=== PATIENT | female | born 1985 | race Caucasian/White ===

== ENCOUNTER → 2019-01-24 13:53 | Outpatient (CLI) | payer SELFPAY ==
[2016-11-26 01:21] VITALS: BMI 29.7
[2019-01-31 17:03] LABS: HPV Reflexed? NOT INDICATED
== END ==
PROVIDERS: Referring Provider Obstetrics & Gynecology; Visit Provider Obstetrics & Gynecology
DX: Z12.4 Encounter for screening for malignant neoplasm of cervix (principal)
CPT/HCPCS: 88175; G0145

== ENCOUNTER 2021-02-25 11:01 | Outpatient (CLI) | payer OTHER, SELFPAY ==
[2021-03-01 11:28] LABS: HPV Reflexed? NOT INDICATED
== END 2021-02-25 23:59 | disposition short-term general hospital (02) ==
LOC: LABSPEC 11:04
PROVIDERS: Referring Provider Obstetrics & Gynecology; Visit Provider Obstetrics & Gynecology
DX: Z12.4 Encounter for screening for malignant neoplasm of cervix (principal)
CPT/HCPCS: 88175; G0145

== ENCOUNTER → 2022-06-22 | Outpatient (CLI) | payer OTHER, SELFPAY ==
[2022-06-29 14:10] LABS: HPV APTIMA, High Risk Negative (Negative)
== END | disposition home or self-care (01) ==
PROVIDERS: PCP Family Medicine; Visit Provider Nurse Practitioner Women's Health
DX: Z12.4 Encounter for screening for malignant neoplasm of cervix (principal)
CPT/HCPCS: 87624; 88175; G0145

== ENCOUNTER → 2022-07-01 | Outpatient (CLI) | payer SELFPAY ==
--- NOTE | 2022-07-01 14:03 | US_ITS ---
STUDY: ULTRASOUND OF THE FEMALE PELVIS - COMPLETE REASON FOR EXAM: Female, 36 years old. menorrhagia LMP: 06/13/2022 TECHNIQUE: Transabdominal and Transvaginal TECHNICAL QUALITY: Adequate. COMPARISON: None. FINDINGS: The uterus is retroverted and is in a midline position. The uterus measures 8.4 x 5.4 x 5.2 cm. Normal uterine cervix. The endometrium measures 7 mm in thickness, and is hyperechoic. There is no demonstrated endometrial mass. Uterine myometrial fibroid measures up to 3.8 cm. I.U.D. - The patient does not have an I.U.D. The right ovary is visualized. The right ovary measures 5.6 x 5.1 x 4.1 cm. Complex cyst measures 4.6 x 4.3 x 2.6 cm. There is no visualized right adnexal mass or complex lesion. There is normal arterial and normal venous vascularity. The left ovary is visualized. The left ovary measures 3.8 x 3.0 x 2.4 cm. Anechoic cyst measures 3.4 x 2.4 x 1.6 cm. SRU Consensus Conference guidelines (Greenfield, et. al. Radiology 2019;293:359-371) suggest that this follicle or simple cyst is almost certainly benign and no follow-up of this cyst is necessary.There is no visualized left adnexal mass or complex lesion. There is normal arterial and normal venous vascularity. There is no fluid in the cul-de-sac. Visualized urinary bladder is unremarkable. US/Transvaginal Non- IMPRESSION: 1. 3.8 cm myometrial fibroid. 2. 4.6 cm complex right adnexal cyst, probable hemorrhagic cyst. ACR White Paper guidelines (Jean Pierre, et. al. Radiology 2010; 256(3):943-954) suggest short-interval pelvic ultrasound follow-up (6-12 weeks) to ensure resolution. Electronically Signed: Cem Langston (Brooks), at 17:33 EDT ,
--- NOTE | 2022-07-01 14:03 | US_ITS ---
STUDY: ULTRASOUND OF THE FEMALE PELVIS - COMPLETE REASON FOR EXAM: Female, 36 years old. menorrhagia LMP: 06/13/2022 TECHNIQUE: Transabdominal and Transvaginal TECHNICAL QUALITY: Adequate. COMPARISON: None. FINDINGS: The uterus is retroverted and is in a midline position. The uterus measures 8.4 x 5.4 x 5.2 cm. Normal uterine cervix. The endometrium measures 7 mm in thickness, and is hyperechoic. There is no demonstrated endometrial mass. Uterine myometrial fibroid measures up to 3.8 cm. I.U.D. - The patient does not have an I.U.D. The right ovary is visualized. The right ovary measures 5.6 x 5.1 x 4.1 cm. Complex cyst measures 4.6 x 4.3 x 2.6 cm. There is no visualized right adnexal mass or complex lesion. There is normal arterial and normal venous vascularity. The left ovary is visualized. The left ovary measures 3.8 x 3.0 x 2.4 cm. Anechoic cyst measures 3.4 x 2.4 x 1.6 cm. SRU Consensus Conference guidelines (Greenfield, et. al. Radiology 2019;293:359-371) suggest that this follicle or simple cyst is almost certainly benign and no follow-up of this cyst is necessary.There is no visualized left adnexal mass or complex lesion. There is normal arterial and normal venous vascularity. There is no fluid in the cul-de-sac. Visualized urinary bladder is unremarkable. US/Pelvic (Non ) IMPRESSION: 1. 3.8 cm myometrial fibroid. 2. 4.6 cm complex right adnexal cyst, probable hemorrhagic cyst. ACR White Paper guidelines (Greenfield, et. al. Radiology 2010; 256(3):943-954) suggest short-interval pelvic ultrasound follow-up (6-12 weeks) to ensure resolution. Electronically Signed: Cem Langston (Brooks), at 17:33 EDT ,
== END | disposition home or self-care (01) ==
PROVIDERS: PCP Family Medicine; Referring Provider Nurse Practitioner Women's Health; Visit Provider Nurse Practitioner Women's Health
DX: N92.0 Excessive and frequent menstruation with regular cycle (principal)
CPT/HCPCS: 76830; 76856

== ENCOUNTER → 2022-09-09 | Outpatient (CLI) | payer SELFPAY ==
[2022-09-09 14:25] LABS: Absolute Lymphocyte Count 2.43 X10^3/uL (0.83-4.51); Absolute Neutrophil Count 5.1 X10^3/uL (2.0-7.7); Basophil# 0.06 X10^3/uL; Basophil% 0.7 % (0-1); Eosinophils% 1.2 % (0-5); Hematocrit 39.6 % (37-47); Hemoglobin 12.8 g/dL (12.0-15.0); Lymphocyte # 2.43 X10^3/ul (0.83-4.51); Lymphocyte % 29.3 % (19-41); Mean Corp Hgb Conc 32.3 g/dL (32-36); Mean Corpuscular Hgb 28.1 pg (27.0-32.0); Monocyte# 0.62 X10^3/uL; Monocyte% 7.5 % (0-10); NRBC Flagged by Analyzer 0 % (0-5); Neutrophil # 5.06 X10^3/uL (2.7-7.7); Neutrophil % 60.9 % (47-70); Platelet Count 230 K/mm3 (150-450); RBC Distribution Width CV 13.4 % (11.6-14.6); RBC Distribution Width SD 42.5 fl (35.1-43.9); Red Blood Count 4.55 M/mm3 (4.2-5.4); White Blood Count 8.3 K/mm3 (4.4-11.0)
[2022-09-09 15:03] LABS: Thyroid Stim Hormone (TSH) 1.94 uIU/mL (0.358-3.74)
== END | disposition home or self-care (01) ==
LOC: LAB 14:00
PROVIDERS: PCP Family Medicine; Referring Provider Obstetrics & Gynecology; Visit Provider Obstetrics & Gynecology
DX: N92.0 Excessive and frequent menstruation with regular cycle (principal)
CPT/HCPCS: 36415; 84443; 85025

== ENCOUNTER → 2023-01-13 | Outpatient (CLI) | payer OTHER, SELFPAY ==
--- NOTE | 2023-01-13 13:15 | EMB_PTH ---
PATIENT: LAMONT MACDONALD LOC: JACKELIN #:[id number] AGE/SX: 37/F ROOM: RE01/13/[address]: Dr. Melissa Geller MD : 1985 BED: DIS: 01/13/2023 SPEC #: [id number] RECD: 01/13/23 16:40 STATUS: JENISE RELala #: [id number] LACHO: 01/13/23 13:[address]: Melissa Geller DEPT: SURGICAL PATHOLOGY RECD BY: Selene Foote ENTERED: 01/16/23 08:19 SP TYPE: ENDOM BX/C OTHR DR: Dr. Tommy Cuenca MD Tissues: Endometrium, NOS Procedures: Surgery Specimen Level IV HEADER OPERATION: Endometrial biopsy PRE-OP DIAGNOSIS: Abnormal uterine bleeding TISSUE SUBMITTED: Endometrial tissue MICROSCOPIC DIAGNOSIS Endometrium, biopsy: Secretory endometrium. AM:randee 01/17/2023 MICROSCOPIC DESCRIPTION Slides are reviewed. GROSS DESCRIPTION Received is one container labeled with the patient's name and not further designated. The specimen consists of multiple irregular fragments of hemorrhagic mucoid tissue that in aggregate measure 2.5 x 1.5 x 0.2 cm. The specimen is totally submitted in one cassette. / SJ:randee 01/16/2023 TC:5 CPT: 54829
== END | disposition home or self-care (01) ==
PROVIDERS: PCP Family Medicine; Visit Provider Obstetrics & Gynecology
DX: N93.9 Abnormal uterine and vaginal bleeding, unspecified (principal)
CPT/HCPCS: 88305

== ENCOUNTER 2023-01-24 18:27 | Observation (INO) | payer OTHER, SELFPAY ==
[2023-01-21 11:27] LABS: Hematocrit 40.9 % (37-47); Hemoglobin 12.8 g/dL (12.0-15.0); Mean Corp Hgb Conc 31.3 g/dL (32-36); Mean Corpuscular Hgb 28.1 pg (27.0-32.0); Mean Corpuscular Volume 89.7 fL (81-99); Mean Platelet Vol. 10.6 fl (6.2-12.0); Platelet Count 208 K/mm3 (150-450); RBC Distribution Width CV 13.4 % (11.6-14.6); RBC Distribution Width SD 44.2 fl (35.1-43.9); Red Blood Count 4.56 M/mm3 (4.2-5.4)
[2023-01-24] VITALS (16 sets, daily range): BP systolic 96–128; BP diastolic 57–88; PULSE 58–98; RESP 15–17; TEMP 36.4–37.1; O2SAT 92–100; BMI 30.5
--- OUTSIDE RECORDS SUMMARY | 2023-01-24 09:54 | XMS RPT_ITS | CCD ---
Author Name Unknown Address [address] [place] [address] Organization [facility] Care Team Providers Care Community Development Manager Name Role Phone SANDRA DUNAWAY Referring Unavailable SANDRA DUNAWAY Consulting Unavailable CRIS CROCKER Attending Unavailable CRIS CROCKER Primary Care Unavailable CRIS CROCKER Admitting Unavailable PROVIDER, UNKNOWN Consulting Unavailable PROVIDER, UNKNOWN Consulting Unavailable PROVIDER, UNKNOWN Consulting Unavailable KIRAN FREY Attending Unavailable KIRAN FREY Primary Care Unavailable KIRAN FREY Admitting Unavailable Results Test Name Value Interpretation Reference Range Facil ity Encounters Encounter Date Encounter Type Care Provider Facility Start: 06-06-2022 End: 06-06-2022 Emergency department patient visit SANDRA DUNAWAY [facility] Start: 07-29-2021 End: 07-29-2021 Emergency department patient visit KIRAN Ross FREY [facility] Procedures Date Procedure Procedure Detail Performing Clinician Start: 06-06-2022 Urinalysis SANDRA Cooney Summary Purpose Family History No Family History Records Found Advance Directives No Advanced Directives Records Found Additional Source Comments INFORMATION SOURCE (unrecogn ized section and content) FOR RECORDS PERTAINING TO PATIENTS WHO ARE OR HAVE BEEN ENROLLED IN A CHEMICAL DEPENDENCY/SUBSTANCEABUSE PROGRAM, SOME INFORMATION MAY BE OMITTED. This clinical summary was aggregated from multiple sources. Caution should be exercised in using it in the provision of clinical care. This summary normalizes information from multiple sources, and as a consequence, information in this document may materially change the coding, format and clinical context of patient data. In addition, data may be omitted in some cases. CLINICAL DECISIONS SHOULD BE BASED ON THE PRIMARY CLINICAL RECORDS. [employer] provides no warranty or guarantee of the accuracy or completeness of information in this document.
[2023-01-24 10:09] LABS: Internal QC Validated? YES +Cl - CLEAR BKGD; Pregnancy, Urine Negative Negative; Record Kit Lot#,Urine Preg 667200
[2023-01-24] MEDS: Celecoxib 200 MG Capsule 400 MG PO (10:11)
[2023-01-24] MEDS: Gabapentin 600 MG Tablet PO (10:11)
[2023-01-24] MEDS: Acetaminophen 500 MG Tablet 1000 MG PO ×2 (10:11→19:41)
[2023-01-24] MEDS: Scopolamine 1mg/72hr Patch 1 PATCH TD (10:11)
[2023-01-24] MEDS: Enoxaparin 40 MG/0.4 ML Syringe SC (10:12)
[2023-01-24] MEDS: Lactated Ringers 1,000 ML 40 ML IV (10:12)
[2023-01-24] MEDS: dexAMETHasone 4 MG/ML Vial 8 MG IV (10:12)
[2023-01-24] MEDS: Phenazopyridine 95 MG Tablet 190 MG PO (10:15)
[2023-01-24 10:34] LABS: Magnesium 2.3 mg/dL (1.6-2.6)
[2023-01-24] MEDS: Magnesium 1 GM over 15 mins IV (11:02)
[2023-01-24 11:18] LABS: Bedside Glucose 91 mg/dL (74-106)
--- NOTE | 2023-01-24 11:28 | PCM.HP.BLA ---
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: No Is patient in pain?: No Allergies No Known Allergies Allergy (Verified 01/13/23 13:10) Medications tranexamic acid 650 mg tablet 1,300 mg (2 x 650 mg) PO TID 5 days #30 tabs 09/09/22 [Rx Confirmed 01/13/23] Post menopausal: No Patient : No : No PFSH PFSH Medical History delivery delivered Surgical History S/P Family History Aunt Cancer LungMother HypertensionGrandfather HypertensionGrandmother CVA (cerebral vascular accident) Myocardial infarctionOther Diabetes Social History household members: spouse housing: house number of children: 1 current occupational status: employed current occupation: [employer] Smoking Status: Never smoker alcohol intake: never substance use type: does not use seatbelt use: never do you feel safe at home: Yes 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 Date Name GA/Weeks Outcome Route Bth Weight Infant Gen Labor Lgth Anesthesia Del Locatn Provider FOB 11/26/16 Afshan HPI EMB, 4 mo fu Details: LAMONT MACDONALD is a 37 year old who presents for preop visit and emb. she is not sexually active and declines a test. she has an enlarged fibroid uterus with 4 cm fibroid. 8.4 x 5.4 x 5.2 cm. Normal uterine cervix. The endometrium measures 7 mm in thickness, and is hyperechoic. There is no demonstrated endometrial mass. Uterine myometrial fibroid measures up to 3.8 cm. I.U.D. - The patient does not have an I.U.D. The right ovary is visualized. The right ovary measures 5.6 x 5.1 x 4.1 cm. Complex cyst measures 4.6 x 4.3 x 2.6 cm. There is no visualized right adnexal mass or complex lesion. There is normal arterial and normal venous vascularity. The left ovary is visualized. The left ovary measures 3.8 x 3.0 x 2.4 cm. Anechoic cyst measures 3.4 x 2.4 x 1.6 cm. Female Reproductive History Menopausal Symptoms: Yes hot flashes ROS Const Constitutional: Denies fatigue, fever(s), headache(s), increased appetite, poor appetite, weight gain or weight loss ENT ENT: Reports system reviewed and no additional complaints, except as documented Cardio Card: Denies chest pain Resp Resp: Denies cough or dyspnea GI GI: Reports as per HPI; Denies abdominal pain, constipation, nausea or vomiting : Reports hot flashes; Denies nipple discharge Musc Musc: Denies arthralgias, back pain or muscle weakness Skin Skin/Breast: Denies alopecia, change in hair, dry skin, breast mass, breast pain, breast skin changes or nipple discharge Neuro Neuro: Reports system reviewed and no additional complaints, except as documented Psych Psych: Reports system reviewed and no additional complaints, except as documented Endo Endo: Denies cold intolerance, excessive sweating, heat intolerance or polydipsia Javi/Lymph Hematologic/Lymphatic: Denies easy bleeding, Denies easy bruising and Denies lymphadenopathy Exam Const General: cooperative, healthy appearing, comfortable, no acute distress and well developed Orientation: alert [facility] Head: normal to inspection and normocephalic Ears: hearing grossly normal bilaterally and external ears normal Nose: external nose normal and nares normal Face and sinus: normal facial exam Neck Neck: normal visual inspection, no lymphadenopathy and trachea midline Thyroid: thyroid normal Chest Chest palpation & inspection: normal inspection of the chest Resp Effort & Inspection: normal respiratory effort Auscultation: clear to auscultation bilaterally Cardio Rate: regular rate Rhythm: regular rhythm Heart Sounds: S1 normal and S2 normal GI Inspection: normal to inspection and non-distended Palpation: soft and no hepatosplenomegaly General: bladder normal to palpation External Female Exam: normal external appearance and normal appearance of the urethra Urethra: normal appearance of the urethra, normal palpation and no discharge Speculum Exam - Vagina: normal appearance of the vagina and normal vaginal discharge Speculum Exam - Cervix: normal appearance of the cervix and nontender Bimanual Exam- Vagina & Uterus: normal bimanual exam, uterine size normal, bladder normal to palpation, uterine shape normal, No tender, uterine mobility normal, consistency normal, normal palpation and non-tender Bimanual Exam- Adnexa, other: normal adnexae, adnexae mobile, no masses and normal Pelvic Support: normal Musc Other: gross motor intact no deficits, full bilateral strength Skin General: no rashes or lesions noted Neuro General: patient alert, patient awake, moves all extremities and no focal motor deficits Motor: muscle tone normal throughout Extrem General: normal to inspection and no pedal edema Psych Appearance: grossly normal Mental Status: mental status grossly normal Affect: normal affect Speech and Movement: speech and movement normal Office Procedures Endometrial Biopsy Endometrial Biopsy Test: Yes declined Consent Signed: Yes Time out checklist: patient, procedure, site marked/identified, positioning of patient, supplies available, allergies confirmed and team agrees on procedure tenaculum used: Yes dilator used: No Details: Cervix prepped with betadine and pipelle inserted into uterus without complication. Specimen obtained and sent to lab for analysis. All instruments removed from vagina without complications. Excellent hemostasis noted. Coding Level of Care Code No Charge Diagnoses Enlarged uterus N85.2 Menorrhagia with regular cycle N92.0 Bilateral ovarian cysts N83.201; N83.202 CPT Codes Endometrial Biopsy (73006) Assessment and Plan Assessment and Plan (1) Enlarged uterus: Status: Acute Comment: 4 cm fibroid, discussed lysteda or myfembree, recommend lavhbs and bilateral ovarian cytstectomies. discussed and have permission to remove ovaries if diseased severely. (2) Menorrhagia with regular cycle: Status: Acute Comment: US, labs done. needs EMB at preop, plan LAVHBS (3) Bilateral ovarian cysts: Status: Acute Comment: recommend bilateral ovarian cystectomies Orders: Orders Endometrial Biopsy 01/13/23 N92.0 - Excessive and frequent menstruation with regular cycle Plan After discussing the patient's diagnosis and treatment plan options, patient wishes to proceed with surgical management. I have discussed with the patient the risks, benefits, and alternatives of the procedure which include but are not limited to risks of anesthesia, bleeding, infection, possible damage to bowel, bladder, or surrounding vasculature which could lead to additional surgery to evaluate any complications. Patient agrees to procedure and wishes to proceed. ACOG/uptodate references given for additional information regarding procedure. UPDATE- I have seen the patient and performed any clinically relevant updates to the history and physical exam. Melissa Geller MD
--- NOTE | 2023-01-24 11:40 | HYST_PTH ---
PATHOLOGY RESULTS PATIENT: LAMONT MACDONALD LOC: MS3 U#:[id number] AGE/SX: 37/F ROOM: MS318 RE01/24/[address]: Dr. Melissa Geller MD : 1985 BED: 1 DIS: 01/25/2023 SPEC #: [id number] RECD: 01/25/23 09:44 STATUS: JENISE DALYLala #: [id number] LACHO: 01/24/23 11:[address]: Melissa Geller DEPT: SURGICAL PATHOLOGY RECD BY: Sherice Gilmore ENTERED: 01/25/23 09:45 SP TYPE: HYSTERECT OTHR DR: Dr. Tommy Cuenca MD Tissues: Uterus, NOS Peritoneal cavity, NOS Procedures: Decalcification bone/plaque Surgery Specimen Level IV Surgery Specimen Level V HEADER OPERATION: ERAS, Hysterectomy, LAVH, bilateral salpingectomy and oophorectomy PRE-OP DIAGNOSIS: Enlarged uterus, menorrhagia with regular cycle, bilateral ovarian cysts TISSUE SUBMITTED: A - Uterus, cervix, bilateral fallopian tubes and ovaries, B - Peritoneal biopsy MICROSCOPIC DIAGNOSIS A. Uterus, cervix, bilateral fallopian tubes, hysterectomy and bilateral salpingectomy: Cervix - chronic cystic cervicitis. Endometrium - proliferative endometrium. Myometrium - intramural leiomyomas (largest measuring 1.0 cm in greatest dimension). - Focal adenomyosis. Bilateral fallopian tubes - no pathologic diagnosis. See comment. B. Peritoneal biopsy: A piece of fibroadipose tissue with fat necrosis and calcification. SJ:randee 01/27/2023 COMMENT A. No ovarian tissue is identified in the specimen. MICROSCOPIC DESCRIPTION Slides are reviewed. GROSS DESCRIPTION A - Received in fixative is one container labeled with the patient's name and designated uterus. The specimen consists of a hysterectomy specimen in multiple pieces, consisting of uterus in multiple pieces, detached cervix, two detached bilateral fallopian tubes and a few detached pieces of soft tissue. No obvious ovarian tissue is identified. The uterus with cervix in multiple pieces weighs in aggregate 80 gm. The detached piece of cervix measures 6.0 x 3.0 x 2.0 cm. The ectocervical mucosa is unremarkable. The external os is slit-like in contour. The endocervical canal measures 3.0 cm in length. The endocervical mucosa is unremarkable. Sections of the cervix reveal multiple cysts filled with mucoid material. Portion of the lower uterine segment is also present in this portion of the cervix and shows two nodular masses, larger one measuring 1.0 cm in greatest dimension. The uterus is present in three pieces and measures in aggregate 6.0 x 7.0 x 4.5 cm. The largest piece of uterus reveals endometrial cavity which measures 3.0 cm in greatest length. Exact dimension cannot be assessed due to the distorted nature on the specimen. The endometrium is pink and hemorrhagic without any mass lesion and measures 0.1 cm in thickness. Sections of the uterine wall reveal one nodular mass measuring 0.9 cm in greatest dimension. Sections of nodular masses reveal montes whorled cut surfaces without areas of hemorrhage, necrosis or cystic degeneration. The uterine wall measures up to 2.5 cm in thickness. The fallopian tubes are not identified as right or left and measures 2.5 cm in length and 0.7 cm in diameter and 4.5 cm in length and 0.7 cm in diameter. The fimbrial end is identified. Sections reveal unremarkable cut surfaces. Also present in the container are two detached pieces of pink soft tissue measuring in aggregate 1.0 x 1.0 x 0.3 cm. Ambulatory Services Representative sections are submitted in ten cassettes as follows: 1 & 2 - cervix, 3-6 - uterine wall including endometrium, 7 - nodular masses, 8 - one fallopian tube, 9 - second fallopian tube, 10 - detached pieces of tissue, entirely submitted. B - Received in fixative is one container labeled with the patient's name and designated peritoneal biopsy. The specimen consists of a piece of montes, indurated tissue measuring 1.0 x 0.5 x 0.5 cm. The specimen cuts with gritty sensation. The specimen is bisected and submitted entirely in one cassette after decalcification. / SJ:rg 01/25/2023 TC:3 CPT: 88917, 68194, 87168
[2023-01-24] MEDS: Cefazolin 2 GM in 0.9% Normal Saline (100mL Bag) 100 ML IV (12:20)
[2023-01-24] MEDS: Bupivacaine 0.25% 30 ML Vial (14:00)
[2023-01-24] MEDS: Vasopressin 20 UNITS/ML Vial (14:02)
[2023-01-24] MEDS: Ondansetron 4 MG/2 ML Vial IV (15:00)
--- NOTE | 2023-01-24 15:07 | OP.PCM_ITS ---
Problems Associated Problem List Diagnoses (1) Bilateral ovarian cysts: (2) Enlarged uterus: (3) Menorrhagia with regular cycle: (4) S/P laparoscopic assisted vaginal hysterectomy (LAVH): Report of Operation Date of Procedure: 01/24/23 Pre-Operative Diagnosis: see A/P Post-Operative Diagnosis: same Surgery/Procedure Performed:: LAVHBS Description of Surgical Findings:: stage IV endometriosis with obliteration of the culde sac and bilateral endometriomas Surgeon: Melissa Geller health and wellness director: Shadi Christine Type of Anesthesia: General Special Medications: hemoblast Specimen's removed: uterus, tubes Drains: barrera Estimated Blood Loss (mL): 400 Fluids Replaced: crystalloid Description of Procedure: Patient received preoperative antibiotics and SCDs were on preoperatively. Patient was taken back to the operating room and placed in the dorsal lithotomy position. General anesthesia was induced and patient was prepped and draped in normal sterile fashion. Uterine manipulator was placed inside the uterus and Barrera catheter placed in the bladder. The umbilicus was grasped with towel clamps and an intraumbilical incision was made after injecting with quarter percent Marcaine and a Veress needle entered into the abdomen confirmed to be intra-abdominal with a low opening pressure. Abdomen was insufflated with CO2 gas and the Veress needle removed and the 5 mm trocar was placed under direct visualization without complication. Right and left lower quadrants were transilluminated and injected with quarter percent Marcaine and 5 mm ports placed under direct visualization. Pelvis was well visualized see operative findings for additional information. Hydrodissection was used to try and free up the ovaries posteriorly and then dissection with the LigaSure device and monopolar instrument were used. Bilateral endometriomas were opened up and cauterized. Cystectomies were unable to be performed due to the extensive scarr ing but they were both noted to be small and therefore the remaining endometrial tissue and the ovaries that were seen were cauterized. Ovaries were freed from the pelvic sidewalls as much as possible. Bilateral fallopian tubes were identified and transected with the LigaSure device across the mesosalpinx to the level of the utero-ovarian ligament which was also transected with the LigaSure device. The broad ligament was opened up by transecting the round ligament bilaterally and skeletonizing the uterine vessels bilaterally and creating a bladder flap using the LigaSure device. The uterine arteries were transected bilaterally with good visualization of the bladder and the ureters were seen to be inferior lateral to the operative area. Pelvic congestion and bleeding was encountered on the left side and additional cautery was used around the area of the uterine artery and where an extensive dissection was performed due to the dense uterine to ovarian to ovarian fossa adhesions from the left adnexa but hemostasis was obtained. Good visualization of the ureters to be inferior lateral to the operative field was noted. Attention was then paid to the vaginal portion of the procedure and the cervix was grasped with Heena clamps and circumferentially injected with dilute vasopressin. A circumferential incision was made and the vaginal mucosa was mobilized off posteriorly and the cul-de-sac was unable to be entered due to scarring, therefore the procedure was switched to a Doderlein technique with flipping the uterus anteriorly and delivering it vaginally after the anterior cul-de-sac was then identified and entered into sharply. Uterus was morcellated and amputated with the bovie to be able to see around to access the pedicles and z clamps were placed under the base of the cervical stump. cervix removed with jacquelyn scissors and the pedicles ligated with 0 Monocryl. Additional [id number] sutures were used to obtain hemostasis. Pelvic sidewall pedicles were checked and noted to have excellent hemostasis. The left ovary was noted to have some oozing and therefore hemoblast was placed over the ovary and cul-de-sac to obtain hemostasis vaginally. The vaginal mucosa was reapproximated incorporating the posterior peritoneum. This was reapproximated using 0 Vicryl [id number] sutures. Excellent hemostasis was noted. The pelvis and cul-de-sac were well visualized and no significant active bleeding noted. Pressure was taken down and the areas visualized and noted of excellent hemostasis. All ports were removed under direct visualization without complication and the abdomen was desufflated of air. Additional nodule was noted on the left pelvic sidewall which was removed using the LigaSure device and sent to pathology for analysis. The instruments were removed from the abdomen and the vaginal sweep was negative. Port sites on the abdomen were closed with 4-0 Monocryl interrupted sutures and Steri's and windows were applied. She was awoken and taken recovery in stable condition. Grafts/Implants Used: none Procedure Start Time: 12:47 Procedure Stop Time: 15:09 Complications none Admit VTE Documentation VTE Present on Admission: No VTE Mechan Device Prophylaxis: SCD's VTE Pharm Prophylaxis ordered?: Yes Procedures Urinary/Genital 52xxx-59xxx: 73314 LAVH+BS/O <250gr Uterus
--- NOTE | 2023-01-24 15:17 | DCINST_ITS ---
Discharge Instructions Diet Discharge Diet: No restrictions Activity May resume sexual activity in: 6 weeks Weight Bearing Status: Full weight bearing Dressing / Incision Call your doctor if your incision/area has: Continuous Slow Oozing, Sudden Increased Bleeding, Increased Pain/ Swelling, Increased Redness and Foul Smelling Discharge Call your doctor if you observe: Fever of 101 or Higher, Using more than 1 pad per hour, Shortness of breath, Chest pain and Uncontrolled pain Suture Line Care: Avoid Pulling/Pushing and Avoid Pinching/Bending Remove Dressing in: 1 week (if present) Cleanse incision/area with: Soap & Water and Keep Dressing Clean & Dry Follow Up Care Please Follow Up With: Melissa Geller MD When: Call to make an appointment with your doctor for a postop visit in 2 and 6 weeks. Test Results: Test results from this visit will be discussed in further detail at your follow- up appointment, if applicable. Discharge Plan Admission Attending Provider: Melissa Geller Primary Care Provider: Tommy Cuenca Discharge Orders/Prescriptions Prescriptions: New oxycodone-acetaminophen [Percocet] 5-325 mg tablet 1 tab PO Q6H PRN (Reason: pain) 7 Days Qty: 20 0RF naproxen [naproxen] 500 mg tablet 500 mg PO BID PRN PRN (Reason: Pain) Qty: 30 1RF No Action tranexamic acid 650 mg tablet 1,300 mg PO TID 5 Days Qty: 30 4RF Rx Instructions: begin at onset of menstrual bleeding Referrals / Follow Up: Tommy Cuenca MD [Primary Care Provider] - Disposition Disposition (needs filled in before D/C Order can be placed): Home, Self Care
[2023-01-24] MEDS: Lactated Ringers 1,000 ML 15 ML IV (17:12)
[2023-01-24 18:08] LABS: Hematocrit 38.8 % (37-47); Hemoglobin 12.1 g/dL (12.0-15.0); Mean Corp Hgb Conc 31.2 g/dL (32-36); Mean Corpuscular Volume 89.8 fL (81-99); Mean Platelet Vol. 10.7 fl (6.2-12.0); Platelet Count 249 K/mm3 (150-450); RBC Distribution Width CV 13.4 % (11.6-14.6); RBC Distribution Width SD 44.1 fl (35.1-43.9); Red Blood Count 4.32 M/mm3 (4.2-5.4); White Blood Count 11.7 K/mm3 (4.4-11.0)
[2023-01-24] MEDS: Ketorolac 30 MG/ML Syringe IV (18:35)
--- OUTSIDE RECORDS SUMMARY | 2023-01-24 18:50 | XMS RPT_ITS | CCD ---
Author Name Unknown Address [address] [place] [address] Organization [facility] Care Team Providers Care [place] Name Role Phone SANDRA DUNAWAY Referring Unavailable [...] 06-06-2022 Emergency department patient visit SANDRA DUNAWAY [facility] Start: 07-29-2021 End: 07-29-2021 Emergency department patient visit KIRAN Ross FREY [facility] Procedures Date Procedure Procedure Detail Performing Clinician [...] BE BASED ON THE PRIMARY CLINICAL RECORDS. [employer] provides no warranty or guarantee of the accuracy or completeness of information in this document.
[2023-01-25] MEDS: Acetaminophen 500 MG Tablet 1000 MG PO ×2 (02:32→06:32)
[2023-01-25 02:41] VITALS: BP 125/74; PULSE 78; RESP 16; TEMP 36.8; O2SAT 95
[2023-01-25 06:27] VITALS: BP 125/92; PULSE 84; RESP 16; TEMP 36.9; O2SAT 100
[2023-01-25 06:43] LABS: Absolute Lymphocyte Count 1.84 X10^3/uL (0.83-4.51); Absolute Neutrophil Count 9.2 X10^3/uL (2.0-7.7); Basophil# 0.02 X10^3/uL; Basophil% 0.2 % (0-1); Hematocrit 38.4 % (37-47); Hemoglobin 12.1 g/dL (12.0-15.0); Lymphocyte # 1.84 X10^3/ul (0.83-4.51); Lymphocyte % 15.1 % (19-41); Mean Corp Hgb Conc 31.5 g/dL (32-36); Mean Corpuscular Hgb 28.5 pg (27.0-32.0); Mean Corpuscular Volume 90.4 fL (81-99); Mean Platelet Vol. 11.1 fl (6.2-12.0); Monocyte# 1.08 X10^3/uL; Monocyte% 8.8 % (0-10); NRBC Flagged by Analyzer 0 % (0-5); Neutrophil # 9.21 X10^3/uL (2.7-7.7); Neutrophil % 75.4 % (47-70); Platelet Count 259 K/mm3 (150-450); RBC Distribution Width CV 13.7 % (11.6-14.6); RBC Distribution Width SD 45.3 fl (35.1-43.9); Red Blood Count 4.25 M/mm3 (4.2-5.4); White Blood Count 12.2 K/mm3 (4.4-11.0)
[2023-01-25 07:41] VITALS: BP 128/74; PULSE 66; RESP 16; TEMP 36.8; O2SAT 98
--- NOTE | 2023-01-25 07:59 | PCM.PN.OB ---
Subjective Subjective patient recovering well, denies CP, SOB, N, or V. patient is ambulating, voiding ,tolerating adequate po, and pain is controlled with oral medications. Objective Data Objective Data Vital Signs: Vital Signs Temp Pulse Resp BP Pulse Ox O2 Del Method O2 Flow Rate 98.3 F 66 16 128/74 H 98 Room Air 4 01/25/23 07:41 01/25/23 07:41 01/25/23 07:41 01/25/23 07:41 01/25/23 07:41 01/25/23 07:44 01/24/23 17:00 Oxygen Flow Rate (L/min) 4 Oxygen Delivery Method Room Air Weight: 156 lb 8.451 oz Body Mass Index (BMI) 30.5 Intake & Output: Intake and Output for Last 24 Hours 01/23/23 01/24/23 01/25/23 23:59 23:59 23:59 Intake Total 2281.5 / 2281.5 Output Total 200 / 200 Balance 2081.5 / 2081.5 Lab / Micro Data 01/25/23 05:43 Labs: Laboratory Results - last 24 hr 01/24/23 09:50: Magnesium 2.3, Urine Test Negative 01/24/23 10:01: POC Glucose 91 01/24/23 17:58: WBC 11.7 H, RBC 4.32, Hgb 12.1, Hct 38.8, MCV 89.8, MCH 28.0, MCHC 31.2 L, RDW Std Deviation 44.1 H, RDW Coeff of Shira 13.4, Plt Count 249, MPV 10.7 01/25/23 05:43: WBC 12.2 H, RBC 4.25, Hgb 12.1, Hct 38.4, MCV 90.4, MCH 28.5, MCHC 31.5 L, RDW Std Deviation 45.3 H, RDW Coeff of Shira 13.7, Plt Count 259, MPV 11.1, Immature Gran % (Auto) 0.500, Neut % (Auto) 75.4 H, Lymph % (Auto) 15.1 L, [place] % (Auto) 8.8, Eos % (Auto) 0.0, Baso % (Auto) 0.2, Absolute Neuts (auto) 9.2 H, Absolute Lymphs (auto) 1.84, Nucleated RBC % 0 Physical Exam Const alert and oriented x3 HEENT normocephalic Eyes PERRL Neck full ROM Resp normal respiratory effort GI soft to palpation GI Narrative: FF below U. Dressing dry and intact Palpation: tender other (appropriately) Assessment & Plan (1) S/P laparoscopic assisted vaginal hysterectomy (LAVH): COMMENT: stage IV endometriosis, bilateral endometriomas and obliteration of cul de sac. lavh bs cystotomies with ablation of endometriosis (2) Endometriosis: PLAN: Plan patient is s/p LAVH POD 1 1. routine ERAS protocol postop care- increase ambulation, encourage oral intake and oral control of pain. lovenox and scds for dvt prophylaxis, patient stable for discharge to home.
--- NOTE | 2023-01-25 11:14 | PHA.DC_ITS ---
Pharmacy [place] Med Reconciliation Pharmacy Service has performed discharge medication reconciliation for this patient. 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 The patient's discharge medication list was reviewed for discrepancies and discrepancies were resolved. Medications at Discharge Home Medications tranexamic acid 650 mg tablet 1,300 mg (2 x 650 mg) PO TID 5 days #30 tabs 09/09/22 naproxen 500 mg tablet 500 mg PO BID PRN PRN Pain #30 tabs 01/24/23 oxycodone-acetaminophen 5 mg-325 mg tablet (Percocet) 1 tab PO Q6H PRN pain 7 days #20 tabs 01/24/23
== END 2023-01-25 11:05 | disposition home or self-care (01) ==
LOC: SDC 18:48 → MS3 18:48
PROVIDERS: Anesthesiology; Admitting Provider Obstetrics & Gynecology; PCP Family Medicine; Referring Provider Obstetrics & Gynecology; Visit Provider Obstetrics & Gynecology
PROC: 0UT9FZZ Resection of Uterus, Via Natural or Artificial Opening With Percutaneous Endoscopic Assistance (ICD-10-PCS; CPT 58552; principal; 2023-01-24 11:15)
DX: D25.1 Intramural leiomyoma of uterus (principal); N83.202 Unspecified ovarian cyst, left side; N83.201 Unspecified ovarian cyst, right side; N85.2 Hypertrophy of uterus; N92.0 Excessive and frequent menstruation with regular cycle; N72 Inflammatory disease of cervix uteri; K21.9 Gastro-esophageal reflux disease without esophagitis
CPT/HCPCS: 58552; 00944; 36415; 81025; 82962; 83735; 85025; 85027; 86850; 86900; 86901; 88305; 88307; 88311; 99221; J7120; G0378; J2405; J3475

== ENCOUNTER → 2023-11-29 | Outpatient (CLI) | payer OTHER, SELFPAY ==
[2023-11-29 17:11] LABS: Absolute Lymphocyte Count 1.89 X10^3/uL (0.83-4.51); Absolute Neutrophil Count 3.8 X10^3/uL (2.0-7.7); Basophil# 0.06 X10^3/uL; Eosinophil# 0.12 X10^3/uL; Eosinophils% 1.9 % (0-5); Hematocrit 43.1 % (37-47); Hemoglobin 13.4 g/dL (12.0-15.0); Lymphocyte # 1.89 X10^3/ul (0.83-4.51); Mean Corp Hgb Conc 31.1 g/dL (32-36); Mean Corpuscular Hgb 27.9 pg (27.0-32.0); Mean Corpuscular Volume 89.6 fL (81-99); Mean Platelet Vol. 11.6 fl (6.2-12.0); Monocyte# 0.36 X10^3/uL; Monocyte% 5.7 % (0-10); NRBC Flagged by Analyzer 0 % (0-5); Neutrophil # 3.84 X10^3/uL (2.7-7.7); Neutrophil % 61.1 % (47-70); Platelet Count 235 K/mm3 (150-450); RBC Distribution Width CV 13.8 % (11.6-14.6); RBC Distribution Width SD 45.4 fl (35.1-43.9); Red Blood Count 4.81 M/mm3 (4.2-5.4); White Blood Count 6.3 K/mm3 (4.4-11.0)
[2023-11-29 17:28] LABS: ALB/GLOB Ratio 1.1 RATIO (0.9-2.4); AST(SGOT) 45 U/L (15-37); Alanine Aminotransfer ALT/SGPT 38 U/L (13-56); Albumin, Serum 3.6 g/dL (3.2-5.0); Alkaline Phosphatase 136 U/L (45-117); Anion Gap 9 (5-15); BUN 11 mg/dL (7-18); BUN/Creat Ratio 10.4 RATIO (10-20); Calcium,Total 9.3 mg/dL (8.5-10.1); Chloride 108 mmol/L (98-107); Creatinine, Serum 1.06 mg/dL (0.55-1.02); EST Glomerular Filtration Rate 62 mL/min (>60); Est Glom Filt Rate - Afr Amer 75 mL/min (>60); Estradiol 58.6 pg/mL; Follicle Stimulating Hormone 6.3 mIU/mL; Globulin 3.3 g/dL (2.2-4.2); Glucose 150 mg/dL (74-106); Potassium 3.2 mmol/L (3.5-5.1); Protein, Total 6.9 g/dL (6.4-8.2); Sodium Level 141 mmol/L (136-145); T4 Free Direct 0.91 ng/dL (0.76-1.46); Thyroid Stim Hormone (TSH) 0.978 uIU/mL (0.358-3.740)
[2023-11-30 02:29] LABS: Vitamin B12 390 pg/mL (211-911); Vitamin D,25 Hydroxy 26.1 ng/mL
== END | disposition home or self-care (01) ==
LOC: WOBLAB 13:53
PROVIDERS: PCP Family Medicine; Referring Provider Nurse Practitioner Family; Visit Provider Nurse Practitioner Family
DX: N80.9 Endometriosis, unspecified (principal); Z20.2 Contact with and (suspected) exposure to infections with a predominantly sexual mode of transmission
CPT/HCPCS: 36415; 80053; 82306; 82607; 82670; 83001; 84439; 84443; 85025

== ENCOUNTER → 2024-02-02 | Outpatient (CLI) | payer OTHER, SELFPAY ==
--- NOTE | 2024-02-02 13:10 | US_ITS ---
HISTORY: pelvic pain, ovarian cysts. TECHNIQUE: Transabdominal and transvaginal pelvic ultrasound was performed with watkins scale and color Doppler evaluation. 74 images. COMPARISON: None. FINDINGS: UTERUS: Surgically absent. RIGHT OVARY: 2.1 x 2.4 x 3 cm. Small follicles present. 1.5 cm involuting hemorrhagic cyst. 1 x 1 x 1.2 cm cystic lesion with calcifications. LEFT OVARY: 1.2 x 2 x 2.2 cm. Small follicles present. Small calcifications noted.. FREE FLUID: None. URINARY BLADDER: Unremarkable at 176 cc. US/Pelvic w/ Transvaginal IMPRESSION: 1.5 cm right ovarian hemorrhagic cyst, decreased in size from prior. Bilateral ovarian calcifications. Electronically Signed: Araceli Quiroz MD at 15:17 EST ,
== END | disposition home or self-care (01) ==
PROVIDERS: PCP Physician Assistant; Referring Provider Nurse Practitioner Family; Visit Provider Nurse Practitioner Family
DX: R10.2 Pelvic and perineal pain (principal)
CPT/HCPCS: 76830; 76856